=== PATIENT | male | born 1950 | race Caucasian/White ===

== ENCOUNTER 2024-01-25 08:00 | Outpatient (CLI) | payer OTHER ==
[~2024-01-25] VITALS: Ht 182.9 cm; Wt 102.1 kg
== END 2024-01-25 13:50 | disposition home or self-care (01) ==
LOC: SLB 08:00 → EDSTATUS 01-31 15:59
PROVIDERS: ATTEND Student in an Organized Health Care Education/Training Program
DX: Z01.818 Encounter for other preprocedural examination (principal); M17.12 Unilateral primary osteoarthritis, left knee
CPT/HCPCS: 87081

== ENCOUNTER 2024-07-31 05:30 | Day surgery (SDC) | payer OTHER ==
[~2024-07-31] VITALS: Ht 182.9 cm; Wt 89.4 kg
[2024-07-31] MEDS ORDERED: ACETAMINOPHEN 500 MG TABLET ONE (05:44)
[2024-07-31] MEDS ORDERED: CELECOXIB 100 MG CAPSULE ONE (05:59)
[2024-07-31] MEDS ORDERED: ACETAMINOPHEN 500 MG TABLET PO ONE (06:00)
[2024-07-31] MEDS ORDERED: SCOPOLAMINE HYDROBROMIDE 1 MG PATCH .72 H (TRANSDERM-SCOP) TD ONE ×2 (06:00→06:01)
[2024-07-31] MEDS ORDERED: GABAPENTIN 300 MG CAPSULE PO ONE (06:00)
[2024-07-31] MEDS ORDERED: CELECOXIB 100 MG CAPSULE PO ONE (06:00)
[2024-07-31] MEDS ORDERED: CEFAZOLIN SOD 2 GM in D5W 50 ML IV ONE (06:00)
[2024-07-31] MEDS ORDERED: oxyCODONE HCL 10 MG TAB.ER.12H PO ONE ×2 (06:00)
[2024-07-31] MEDS ORDERED: GABAPENTIN 300 MG CAPSULE ONE (06:01)
[2024-07-31] MEDS ORDERED: VANCOMYCIN HCL 1000 MG/VIAL IV ONE (07:00)
[2024-07-31] MEDS ORDERED: SEVOFLURANE 15 MIN GAS INH ONE (07:00)
[2024-07-31] MEDS ORDERED: fentaNYL CITRATE/PF 100 MCG/2 ML AMP ONE (07:00)
[2024-07-31] MEDS ORDERED: LR 1,000 ML IV.SOLN IV ONE (07:00)
[2024-07-31] MEDS ORDERED: PROPOFOL 200MG/ 20ML VIAL (DIPRIVAN) IV ONE (07:00)
[2024-07-31] MEDS ORDERED: ceFAZolin SODIUM 1 GM VIAL ONE (07:00)
[2024-07-31] MEDS ORDERED: TRANEXAMIC ACID 1,000 MG/10 ML VIAL ONE (07:00)
[2024-07-31] MEDS ORDERED: ROCURONIUM BROMIDE 10 MG/ML (ZEMURON) ONE (07:00)
[2024-07-31] MEDS ORDERED: BUPIVACAINE /PF 0.25% 10 ML VIAL INJ ONE (07:00)
[2024-07-31] MEDS ORDERED: NS IRRIG SOLN 1000 ML IR ONE (07:00)
[2024-07-31] MEDS ORDERED: ONDANSETRON HCL 4 MG/2 ML VIAL ONE (07:00)
[2024-07-31 07:02] VITALS: PULSE 68; RESP 20; O2SAT 100
[2024-07-31] MEDS ORDERED: LR 1,000 ML IV SCH (08:00)
[2024-07-31] MEDS ORDERED: MEPERIDINE HCL/PF 25 MG/ML DISP.SYRIN IVP PRN (08:00)
[2024-07-31] MEDS ORDERED: ONDANSETRON HCL 4 MG/2 ML VIAL IVP PRN (08:00)
[2024-07-31] MEDS ORDERED: LABETALOL 100 MG/ 20ML VIAL IVP PRN (08:00)
[2024-07-31] MEDS ORDERED: HYDROmorphone 2 MG/ML VIAL ONE (09:38)
[2024-07-31] MEDS: HYDROmorphone 1 MG/ML INJ. CARTRIDGE IVP PRN ×2 (09:38→11:45)
[2024-07-31] MEDS ORDERED: hydrALAZINE HCL 20 MG/ML VIAL ONE (09:39)
[2024-07-31] MEDS: hydrALAZINE HCL 20 MG/ML VIAL IVP PRN (09:39)
[2024-07-31] MEDS ORDERED: TAMSULOSIN HCL 0.4 MG CAP ONE (09:40)
[2024-07-31] MEDS: TAMSULOSIN HCL 0.4 MG CAP PO SCH (11:30)
[2024-07-31] MEDS ORDERED: HYDROmorphone 1 MG/ML INJ. CARTRIDGE ONE (11:48)
== END 2024-07-31 15:24 | disposition home or self-care (01) ==
LOC: SDS 05:30 → SMU 05:30 → SDS 15:24
PROVIDERS: ATTEND Student in an Organized Health Care Education/Training Program
DX: M17.12 Unilateral primary osteoarthritis, left knee (principal); M25.762 Osteophyte, left knee; M25.562 Pain in left knee; G89.18 Other acute postprocedural pain; I10 Essential (primary) hypertension; Z98.890 Other specified postprocedural states; Z79.899 Other long term (current) drug therapy
CPT/HCPCS: 87081; 27447; 97162; 64447; 73560; 97110; 97530; 97116; 88305; 88311; C1776 ×2; J3490 ×2; J0690; J0696; J0360; J2405; J2704; J3370; J3010; J1170 ×2; J7060 ×2; J7120; C1713 ×2